=== PATIENT | female | born 1985 | race Caucasian/White ===

== ENCOUNTER 2016-03-28 19:36 | Emergency (ER) | payer SELFPAY ==
[2016-03-28 20:22] VITALS: BP 100/70
[2016-03-29] MEDS ORDERED: NORCO 5/325 PO ONE (01:12)
[2016-03-29] MEDS ORDERED: TRIMOX PO ONE (01:12)
--- NOTE | 2016-03-29 01:12 | Emergency Department Report ---
ED ENT HPI - General Chief complaint: Earache Stated complaint: BILATERAL EAR PAIN/R EAR HEARING LOSS Time Seen by Provider: 03/29/16 00:57 Source: patient Mode of arrival: Ambulatory Limitations: Language Barrier - History of Present Illness Initial comments: Patient comes in bilateral ear pain with decreased hearing since Saturday. Patient admits to sneezing a lot and feeling like her ears are clogged. Patient denies any recent travels on the airplane for [place] areas. Denies any fever or chills no nausea no vomiting. Eyes any headache change in vision. - Related Data Previous Rx's Medication Instructions Recorded Last Taken Type Amoxicillin [Amoxicillin TAB] 875 mg PO BID #14 tablet 03/29/16 Unknown Rx Fluticasone [Flonase] 1 spray NS QDAY #1 bottle 03/29/16 Unknown Rx Ibuprofen [Motrin 600 MG tab] 600 mg PO Q8H PRN #15 tablet 03/29/16 Unknown Rx Loratadine/Pseudoephedrine 1 tab PO Q12H #60 tablet 03/29/16 Unknown Rx [Claritin-D 12HR] Allergies Allergy/AdvReac Type Severity Reaction Status Date / Time No Known Allergies Allergy Unverified 03/28/16 20:21 ED Dental HPI - General Chief complaint: Earache Stated complaint: BILATERAL EAR PAIN/R EAR HEARING LOSS Time Seen by Provider: 03/29/16 00:57 Source: patient Mode of arrival: Ambulatory Limitations: Language Barrier - Related Data Previous Rx's Medication Instructions Recorded Last Taken Type Amoxicillin [Amoxicillin TAB] 875 mg PO BID #14 tablet 03/29/16 Unknown Rx Fluticasone [Flonase] 1 spray NS QDAY #1 bottle 03/29/16 Unknown Rx Ibuprofen [Motrin 600 MG tab] 600 mg PO Q8H PRN #15 tablet 03/29/16 Unknown Rx Loratadine/Pseudoephedrine 1 tab PO Q12H #60 tablet 03/29/16 Unknown Rx [Claritin-D 12HR] Allergies Allergy/AdvReac Type Severity Reaction Status Date / Time No Known Allergies Allergy Unverified 03/28/16 20:21 ED Review of Systems ROS: Stated complaint: BILATERAL EAR PAIN/R EAR HEARING LOSS Other details as noted in HPI ENT: ear pain (bilateral), hearing loss, congestion (nasal congestion). denies : throat pain, dental pain Respiratory: denies: cough Cardiovascular: denies: chest pain Gastrointestinal: denies: abdominal pain, nausea, vomiting ED Past Medical Hx - Medications Home Medications: Home Medications Medication Instructions Recorded Confirmed Last Taken Type Amoxicillin [Amoxicillin TAB] 875 mg PO BID #14 tablet 03/29/16 Unknown Rx Fluticasone [Flonase] 1 spray NS QDAY #1 bottle 03/29/16 Unknown Rx Ibuprofen [Motrin 600 MG tab] 600 mg PO Q8H PRN #15 tablet 03/29/16 Unknown Rx Loratadine/Pseudoephedrine 1 tab PO Q12H #60 tablet 03/29/16 Unknown Rx [Claritin-D 12HR] ED Physical Exam - General Limitations: Language Barrier General appearance: alert, in no apparent distress - Head Head exam: Present: atraumatic, normocephalic - Expanded ENT Exam Expanded TM/Canal exam: Erythema: Right TM, Left TM, Bulging: Right TM, Effusion: Left TM , Loss of Landmarks: Left TM, Right TM Mouth exam: Present: normal external inspection, tongue normal Throat exam: Positive: normal inspection. Negative: tonsillomegaly, tonsillar exudate - Neck Neck exam: Present: tenderness (post auricular ). Absent: lymphadenopathy - Cardiovascular Cardiovascular Exam: Present: regular rate, normal heart sounds ED Course Vital Signs 03/28/16 20:21 Temperature 98.6 F Pulse Rate 71 Respiratory 16 Rate Blood Pressure 100/70 [Left] O2 Sat by Pulse 99 Oximetry ED Medical Decision Making - Medical Decision Making Recently been evaluated with his provider in fast track. We would discharge patient on amoxicillin for bilateral ear infections with effusion. We'll give her Mentor for the discomfort now. Also put patient on a decongestant to help with the We'll have her follow up with ear nose and throat in 3-5 days. Patient verbalized understanding. Critical care attestation.: If time is entered above; I have spent that time in minutes in the direct care of this critically ill patient, excluding procedure time. ED Disposition Clinical Impression: Otitis media in diseases classified elsewhere, bilateral Disposition: DISCHARGED TO HOME OR SELFCARE Is pt being admited?: No Does the pt Need Aspirin: No Condition: Stable Instructions: Otitis Media (ED) Prescriptions: Amoxicillin [Amoxicillin TAB] 875 mg PO BID #14 tablet Loratadine/Pseudoephedrine [Claritin-D 12HR] 1 tab PO Q12H #60 tablet Fluticasone [Flonase] 1 spray NS QDAY #1 bottle Ibuprofen [Motrin 600 MG tab] 600 mg PO Q8H PRN #15 tablet PRN Reason: Pain Referrals: PRIMARY CARE, [Primary Care Provider] - 3-5 Days [facility] [Outside] - 3-5 Days LUIS CAMPOS MD [Staff Physician] - 3-5 Days BRANDAN BISHOP MD [Staff Physician] - 3-5 Days
== END 2016-03-29 01:36 | disposition home or self-care (01) ==
LOC: ED 19:36
DX: H66.93 Otitis media, unspecified, bilateral (principal)
CPT/HCPCS: 99282